=== PATIENT | male | born 1995 | race Caucasian/White ===

== ENCOUNTER → 2019-06-29 | Outpatient (CLI) | payer OTHER ==
--- NOTE | 2019-06-29 13:27 | REP ---
Three-phase bone scanning of the calves and lower legs. History: Bilateral leg pain. History of negative x-rays. No comparison images. Technique: 22.0 mCi of technetium 99m MDP is injected and standard three-phase imaging was acquired. Scintigraphic findings: Anterior and posterior flow study is normal. Blood pool images show no definite area of regional hyperemia. Delayed scan images show very subtle linear uptake along the posterior cortices of the distal tibias bilaterally. This may reflect mild stress periostitis. No stress fracture is seen. Impression: Mild bilateral distal tibial stress periostitis pattern. No establish stress fracture is seen. Electronically Signed by Jameson Melendez MD 06/29/2019 06:38 P
== END ==
LOC: M RAD 09:25
PROVIDERS: ATTEND Physician Assistant
DX: M79.604 Pain in right leg (principal); M79.605 Pain in left leg